=== PATIENT | female | born 1985 | race African-American/Black ===

== ENCOUNTER 2020-05-17 15:22 | Inpatient (IN) | payer MEDICAID ==
[~2020-05-17] VITALS: Ht 172.7 cm; Wt 82.6 kg
[2020-05-17 15:30] VITALS: BP 133/79
--- NOTE | 2020-05-17 15:52 | Emergency Room Report ---
History of Present Illness General Chief Complaint: Seizure Source: Patient, Medical Record, EMS, Caregiver Present Illness HPI 34-year-old female history of epilepsy presents from assisted living facility, recently discharged from [facility], patient had a tonic-clonic seizure witnessed, patient currently wears a helmet for protection, she had LOC, aggravated by the fact she did not take her seizure medications for a few days alleviated by seizure medication severity was severe lasting a few minutes patient presents for evaluation and treatment history is currently limited from the patient due to her been having a postictal state Allergies: Coded Allergies: No Known Allergies (Unverified , 05/17/20) COVID-19 Screening Contact w/high risk pt: No Experienced COVID-19 symptoms?: No COVID-19 Testing performed FLOORING INSTALLER: No Patient History Limited by: medical condition - Postictal Past Medical History: see triage record Now: No Reviewed Nursing Documentation: PMH: Agreed; PSxH: Agreed Nursing Documentation-PMH Hx Seizures: Yes Review of Systems All Other Systems: limited - Postictal Physical Exam Vital Signs Date Time Temp Pulse Resp B/P (MAP) Pulse Ox O2 Delivery O2 Flow Rate FiO2 05/17/20 15:09 98.2 112 18 124/74 (91) 98 Room Air Sp02 EP Interpretation: reviewed, normal General Appearance: well appearing, no apparent distress, alert Head: normocephalic, atraumatic Eyes: bilateral eye PERRL, bilateral eye EOMI ENT: uvula midline, moist mucus membranes Neck: supple, thyroid normal, supple/symm/no masses Respiratory: lungs clear, no respiratory distress, no retraction, no accessory muscle use Cardiovascular #1: normal peripheral pulses, regular rate, rhythm, no edema, no gallop, no murmur Gastrointestinal: non tender, soft, no guarding, no rebound Musculoskeletal: normal inspection Neurologic: alert, responsive, other - Confused Psychiatric: mood/affect normal Skin: no rash, warm/dry Medical Decision Making Diagnostic Impression: Primary Impression: Epileptic seizure, generalized Additional Impression: UTI (urinary tract infection) Qualified Codes: N39.0 - Urinary tract infection, site not specified ER Course 34-year-old female history of seizure disorder, spoke with machine adjuster leader case trim from the assisted living facility, they were unaware that she was ambulatory and that they do not have the means to care for her they will refuse any discharge they want the patient admitted. She will be admitted to the hospital for placement due to the facility unable to care for her We will provide patient with Lamictal 125 mg, and Keppra 1 g, plan for admission for placement Patient given ceftriaxone for her UTI Patient admitted to Dr. Cloud Laboratory Tests Test 05/17/20 15:30 White Blood Count 7.9 K/UL (4.8-10.8) Red Blood Count 3.88 M/UL (4.20-5.40) L Hemoglobin 11.3 G/DL (12.0-16.0) L Hematocrit 35.4 % (37.0-47.0) L Mean Corpuscular Volume 91 FL (80-99) Mean Corpuscular Hemoglobin 29.1 PG (27.0-31.0) Mean Corpuscular Hemoglobin Concent 32.0 G/DL (32.0-36.0) Red Cell Distribution Width 16.0 % (11.6-14.8) H Platelet Count 174 K/UL (150-450) Mean Platelet Volume 8.1 FL (6.5-10.1) Neutrophils (%) (Auto) 84.3 % (45.0-75.0) H Lymphocytes (%) (Auto) 8.8 % (20.0-45.0) L Monocytes (%) (Auto) 6.1 % (1.0-10.0) Eosinophils (%) (Auto) 0.0 % (0.0-3.0) Basophils (%) (Auto) 0.9 % (0.0-2.0) Urine Color Yellow Urine Appearance Slightly cloudy Urine pH 8 (4.5-8.0) Urine Specific [place] 1.015 (1.005-1.035) Urine Protein 3+ (NEGATIVE) H Urine Glucose (UA) Negative (NEGATIVE) Urine Ketones 1+ (NEGATIVE) H Urine Blood 4+ (NEGATIVE) H Urine Nitrite Negative (NEGATIVE) Urine Bilirubin Negative (NEGATIVE) Urine Urobilinogen Normal MG/DL (0.0-1.0) Urine Leukocyte Esterase 1+ (NEGATIVE) H Urine RBC 15-20 /HPF (0 - 2) H Urine WBC 2-4 /HPF (0 - 2) Urine Squamous Epithelial Cells Many /LPF (NONE/OCC) H Urine Amorphous Sediment Moderate /LPF (NONE) H Urine Bacteria Many /HPF (NONE) H Urine HCG, Qualitative Negative (NEGATIVE) Sodium Level 138 MMOL/L (136-145) Potassium Level 4.0 MMOL/L (3.5-5.1) Chloride Level 100 MMOL/L (98-107) Carbon Dioxide Level 27 MMOL/L (21-32) Anion Gap 11 mmol/L (5-15) Blood Urea Nitrogen 9 mg/dL (7-18) Creatinine 1.1 MG/DL (0.55-1.30) Estimated Glomerular Filtration Rate 57.2 mL/min (>60) Glucose Level 155 MG/DL (74-106) H Calcium Level 9.7 MG/DL (8.5-10.1) Total Bilirubin 0.1 MG/DL (0.2-1.0) L Aspartate Amino Transferase (AST) 12 U/L (15-37) L Alanine Aminotransferase (ALT) 17 U/L (12-78) Alkaline Phosphatase 63 U/L (46-116) Total Protein 8.3 G/DL (6.4-8.2) H Albumin 4.1 G/DL (3.4-5.0) Globulin 4.2 g/dL Albumin/Globulin Ratio 1.0 (1.0-2.7) Urine Opiates Screen Negative (NEGATIVE) Urine Barbiturates Screen Negative (NEGATIVE) Phencyclidine (PCP) Screen Negative (NEGATIVE) Urine Amphetamines Screen Negative (NEGATIVE) Phenobarbital Level < 1.0 ug/mL (15-40) L Urine Benzodiazepines Screen Negative (NEGATIVE) Urine Cocaine Screen Negative (NEGATIVE) Urine Marijuana (THC) Screen Negative (NEGATIVE) EKG Diagnostic Results EKG Time: 15:42 EP Interpretation: NSR, rate 100, QTc 451, no acute ST elevations, normal axis Rhythm Strip Diag. Results Rhythm Strip Time: 15:51 EP Interpretation: yes Rate: 107 Rhythm: other - Sinus tachycardia Last Vital Signs Date Time Temp Pulse Resp B/P (MAP) Pulse Ox O2 Delivery O2 Flow Rate FiO2 05/17/20 15:09 98.2 112 18 124/74 (91) 98 Room Air Disposition: ADMITTED INPATIENT Condition: Stable Malcom Orellana MD May 17, 2020 15:52
[2020-05-17 15:55] LABS: APPEARANCE,URINE SLIGHTLY CLOUDY; BILIRUBIN, URINE NEGATIVE (NEGATIVE); GLUCOSE, URINE (UA) NEGATIVE (NEGATIVE); KETONES,URINE 1+ (NEGATIVE); LEUKOCYTE ESTERASE ,URINE 1+ (NEGATIVE); NITRITE,URINE NEGATIVE (NEGATIVE); PH,URINE 8 (4.5-8.0); PROTEIN,URINE 3+ (NEGATIVE); UROBILINOGEN,URINE NORMAL MG/DL (0.0-1.0)
[2020-05-17 15:56] LABS: COLOR,URINE YELLOW
[2020-05-17 15:58] LABS: BASOPHILS % (AUTO) 0.9 % (0.0-2.0); HEMATOCRIT 35.4 % (37.0-47.0); HEMOGLOBIN 11.3 G/DL (12.0-16.0); LYMPHOCYTES % (AUTO) 8.8 % (20.0-45.0); MEAN CORPUSCULAR VOLUME 91 FL (80-99); MONOCYTES % (AUTO) 6.1 % (1.0-10.0); NEUTROPHILS % (AUTO) 84.3 % (45.0-75.0); PLATELET COUNT 174 K/UL (150-450); RED BLOOD COUNT 3.88 M/UL (4.20-5.40); WHITE BLOOD COUNT 7.9 K/UL (4.8-10.8)
[2020-05-17 16:03] LABS: ANION GAP 11 mmol/L (5-15); BLOOD UREA NITROGEN 9 mg/dL (7-18); CALCIUM 9.7 MG/DL (8.5-10.1); CARBON DIOXIDE 27 MMOL/L (21-32); CHLORIDE 100 MMOL/L (98-107); CREATININE 1.1 MG/DL (0.55-1.30); SODIUM 138 MMOL/L (136-145)
[2020-05-17 16:07] LABS: ALANINE AMINOTRANSFERASE 17 U/L (12-78); ALBUMIN 4.1 G/DL (3.4-5.0); ALKALINE PHOSPHATASE 63 U/L (46-116); ASPARTATE AMINO TRANSFERASE 12 U/L (15-37); BILIRUBIN,TOTAL 0.1 MG/DL (0.2-1.0)
[2020-05-17] MEDS ORDERED: LORazepam Inj 2mg/ml 1ml IV ONE (16:30)
[2020-05-17] MEDS ORDERED: cefTRIAXone 1 GM in NS 55 ML IVPB ONE (17:00)
[2020-05-17 17:30] VITALS: BP 127/81
[2020-05-17 19:20] VITALS: BP 152/67
[2020-05-17] MEDS ORDERED: LAMICTAL25 MG ORAL (19:28)
[2020-05-17] MEDS ORDERED: KEPPRA500 M4 ORAL (19:28)
[2020-05-17] MEDS ORDERED: DOCUSATE SODIU250 MG ORAL (19:38)
[2020-05-17] MEDS ORDERED: SERTRALINE HCL25 MG ORAL (20:16)
[2020-05-17] MEDS ORDERED: ZYPREXA10 MG ORAL (20:16)
[2020-05-17] MEDS ORDERED: FOLIC ACID1 MG ORAL (20:16)
[2020-05-17] MEDS ORDERED: FERROUS SULFAT325 MG ORAL (20:16)
[2020-05-17] MEDS ORDERED: BENZTROPINE MESY1 MG ORAL (20:16)
[2020-05-17 20:30] VITALS: BP 121/57
[2020-05-17] MEDS ORDERED: Zolpidem 5mg tab ORAL PRN (22:00)
[2020-05-17] MEDS ORDERED: Miralax 17gm pkt ORAL PRN (22:00)
[2020-05-18] VITALS: BP 100/45
[2020-05-18] MEDS ORDERED: LORazepam Inj 2mg/ml 1ml IVP PRN
[2020-05-18 04:00] VITALS: BP 106/67
[2020-05-18 08:00] VITALS: BP 160/91
[2020-05-18] MEDS: Benztropine 1mg tab ORAL SCH ×2 (08:24→18:11)
[2020-05-18] MEDS: OLANZapine 10mg tab ORAL SCH (08:24)
[2020-05-18] MEDS: Heparin 5000 units/ml inj SUBQ SCH ×2 (08:26→20:58)
[2020-05-18 11:28] LABS: BASOPHILS % (AUTO) 0.5 % (0.0-2.0); EOSINOPHILS % (AUTO) 0.1 % (0.0-3.0); HEMATOCRIT 33.5 % (37.0-47.0); HEMOGLOBIN 10.6 G/DL (12.0-16.0); LYMPHOCYTES % (AUTO) 16.3 % (20.0-45.0); MEAN CORPUSCULAR VOLUME 90 FL (80-99); NEUTROPHILS % (AUTO) 77.1 % (45.0-75.0); PLATELET COUNT 162 K/UL (150-450); RED BLOOD COUNT 3.71 M/UL (4.20-5.40); RED CELL DISTRIBUTION WIDTH 15.4 % (11.6-14.8); WHITE BLOOD COUNT 8.1 K/UL (4.8-10.8)
[2020-05-18 12:00] VITALS: BP 109/56
[2020-05-18 12:42] LABS: ALANINE AMINOTRANSFERASE 12 U/L (12-78); ALBUMIN 3.8 G/DL (3.4-5.0); ALKALINE PHOSPHATASE 60 U/L (46-116); ANION GAP 10 mmol/L (5-15); ASPARTATE AMINO TRANSFERASE 16 U/L (15-37); BILIRUBIN,TOTAL 0.3 MG/DL (0.2-1.0); BLOOD UREA NITROGEN 7 mg/dL (7-18); CALCIUM 9.1 MG/DL (8.5-10.1); CARBON DIOXIDE 27 MMOL/L (21-32); CHLORIDE 101 MMOL/L (98-107); CREATININE 0.8 MG/DL (0.55-1.30); POTASSIUM 3.7 MMOL/L (3.5-5.1); SODIUM 138 MMOL/L (136-145)
--- NOTE | 2020-05-18 12:50 | Consultation ---
History of Present Illness General Date patient seen: May 18, 2020 Chief Complaint: Seizure Present Illness HPI 34-year-old female with a history of epilepsy presents from assisted living facility, because of a tonic-clonic seizure witnessed. she was recently discharged from another hospital and her boarding care couldn't fill her prescription, for a few days. she had witnessed seizures again and [place] [facility] [place]. Allergies: Coded Allergies: No Known Allergies (Unverified , 05/17/20) Medication History Scheduled Benztropine Mesylate* (Benztropine Mesylate*), 1 MG ORAL BID, (Reported) Docusate Sodium* (Docusate Sodium*), 250 MG ORAL TWICE A DAY, (Reported) Ferrous Sulfate* (Ferrous Sulfate*), 325 MG ORAL TWICE A DAY, (Reported) Folic Acid* (Folic Acid*), 1 MG ORAL DAILY, (Reported) Lamotrigine* (Lamictal*), 25 MG ORAL DAILY, (Reported) Levetiracetam (Keppra), 500 MG ORAL EVERY 12 HOURS, (Reported) Olanzapine* (Zyprexa*), 20 MG ORAL DAILY, (Reported) Sertraline Hcl* (Sertraline Hcl*), 200 MG ORAL BEDTIME, (Reported) Patient History Healthcare decision maker Resuscitation status Advanced Directive on File Past Medical/Surgical History Past Medical/Surgical History: (1) Psychiatric diagnosis Review of Systems All Other Systems: negative except mentioned in HPI Physical Exam General Appearance: WD/WN, no apparent distress Lines, tubes and drains: central line HEENT: normocephalic, atraumatic, anicteric, mucous membranes moist Neck: non-tender, normal alignment, supple, normal inspection Respiratory/Chest: normal breath sounds Cardiovascular/Chest: normal peripheral pulses, normal rate Abdomen: normal bowel sounds, non tender, soft Extremities: normal range of motion, non-tender, normal inspection, no calf tenderness, normal capillary refill, non-pitting Skin Exam: normal pigmentation 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 Last 24 Hour Vital Signs Date Time Temp Pulse Resp B/P (MAP) Pulse Ox O2 Delivery O2 Flow Rate FiO2 05/18/20 12:00 98.0 92 20 109/56 (73) 99 05/18/20 12:00 84 05/18/20 09:34 Room Air 05/18/20 08:00 94 05/18/20 08:00 96.7 88 19 160/91 (114) 99 05/18/20 04:00 97.9 73 18 106/67 (80) 96 05/18/20 04:00 92 05/18/20 00:00 85 05/18/20 00:00 96.5 95 17 100/45 (63) 100 05/17/20 20:30 98.6 103 19 121/57 (78) 100 05/17/20 20:30 100 05/17/20 20:20 Room Air 05/17/20 20:00 98.0 104 20 137/80 99 Room Air 05/17/20 19:20 97.8 99 24 152/67 100 Room Air 05/17/20 17:30 97.8 98 18 127/81 98 Room Air 05/17/20 15:30 98.1 109 18 133/79 97 Room Air 05/17/20 15:30 109 18 Room Air 05/17/20 15:09 98.2 112 18 124/74 (91) 98 Room Air Intake and Output 05/17/20 05/18/20 19:00 07:00 Intake Total 1055 ml 500 ml Balance 1055 ml 500 ml Intake Oral 500 ml IV Total 1055 ml # Voids 1 4 Laboratory Tests Test 05/17/20 15:30 05/18/20 11:10 White Blood Count 7.9 K/UL (4.8-10.8) 8.1 K/UL (4.8-10.8) Red Blood Count 3.88 M/UL (4.20-5.40) L 3.71 M/UL (4.20-5.40) L Hemoglobin 11.3 G/DL (12.0-16.0) L 10.6 G/DL (12.0-16.0) L Hematocrit 35.4 % (37.0-47.0) L 33.5 % (37.0-47.0) L Mean Corpuscular Volume 91 FL (80-99) 90 FL (80-99) Mean Corpuscular Hemoglobin 29.1 PG (27.0-31.0) 28.5 PG (27.0-31.0) Mean Corpuscular Hemoglobin Concent 32.0 G/DL (32.0-36.0) 31.6 G/DL (32.0-36.0) L Red Cell Distribution Width 16.0 % (11.6-14.8) H 15.4 % (11.6-14.8) H Platelet Count 174 K/UL (150-450) 162 K/UL (150-450) Mean Platelet Volume 8.1 FL (6.5-10.1) 7.2 FL (6.5-10.1) Neutrophils (%) (Auto) 84.3 % (45.0-75.0) H 77.1 % (45.0-75.0) H Lymphocytes (%) (Auto) 8.8 % (20.0-45.0) L 16.3 % (20.0-45.0) L Monocytes (%) (Auto) 6.1 % (1.0-10.0) 6.0 % (1.0-10.0) Eosinophils (%) (Auto) 0.0 % (0.0-3.0) 0.1 % (0.0-3.0) Basophils (%) (Auto) 0.9 % (0.0-2.0) 0.5 % (0.0-2.0) Urine Color Yellow Urine Appearance Slightly cloudy Urine pH 8 (4.5-8.0) Urine Specific [place] 1.015 (1.005-1.035) Urine Protein 3+ (NEGATIVE) H Urine Glucose (UA) Negative (NEGATIVE) Urine Ketones 1+ (NEGATIVE) H Urine Blood 4+ (NEGATIVE) H Urine Nitrite Negative (NEGATIVE) Urine Bilirubin Negative (NEGATIVE) Urine Urobilinogen Normal MG/DL (0.0-1.0) Urine Leukocyte Esterase 1+ (NEGATIVE) H Urine RBC 15-20 /HPF (0 - 2) H Urine WBC 2-4 /HPF (0 - 2) Urine Squamous Epithelial Cells Many /LPF (NONE/OCC) H Urine Amorphous Sediment Moderate /LPF (NONE) H Urine Bacteria Many /HPF (NONE) H Urine HCG, Qualitative Negative (NEGATIVE) Sodium Level 138 MMOL/L (136-145) Pending Potassium Level 4.0 MMOL/L (3.5-5.1) Pending Chloride Level 100 MMOL/L (98-107) Pending Carbon Dioxide Level 27 MMOL/L (21-32) Pending Anion Gap 11 mmol/L (5-15) Blood Urea Nitrogen 9 mg/dL (7-18) Pending Creatinine 1.1 MG/DL (0.55-1.30) Pending Estimat Glomerular Filtration Rate 57.2 mL/min (>60) Pending Glucose Level 155 MG/DL (74-106) H Pending Calcium Level 9.7 MG/DL (8.5-10.1) Pending Total Bilirubin 0.1 MG/DL (0.2-1.0) L Pending Aspartate Amino Transf (AST/SGOT) 12 U/L (15-37) L Pending Alanine Aminotransferase (ALT/SGPT) 17 U/L (12-78) Pending Alkaline Phosphatase 63 U/L (46-116) Pending Total Protein 8.3 G/DL (6.4-8.2) H Pending Albumin 4.1 G/DL (3.4-5.0) Pending Globulin 4.2 g/dL Pending Albumin/Globulin Ratio 1.0 (1.0-2.7) Urine Opiates Screen Negative (NEGATIVE) Urine Barbiturates Screen Negative (NEGATIVE) Phencyclidine (PCP) Screen Negative (NEGATIVE) Urine Amphetamines Screen Negative (NEGATIVE) Phenobarbital Level < 1.0 ug/mL (15-40) L Urine Benzodiazepines Screen Negative (NEGATIVE) Urine Cocaine Screen Negative (NEGATIVE) Urine Marijuana (THC) Screen Negative (NEGATIVE) Microbiology Date/Time Source Procedure Growth Status 05/17/20 15:30 Urine,Clean Catch Urine Culture - Preliminary NO GROWTH Resulted Height (Feet): 5 Height (Inches): 8.00 Weight (Pounds): 182 Medications Current Medications Medications (Trade) Dose Ordered Sig/Elizabeth Route PRN Reason Start Time Stop Time Status Last Admin Dose Admin Acetaminophen (Tylenol) 650 mg Q4H PRN ORAL fever 05/17/20 22:00 06/16/20 21:59 Benztropine Mesylate (Cogentin) 1 mg BID ORAL 05/18/20 09:00 06/17/20 08:59 05/18/20 08:24 Ceftriaxone Sodium 1 gm/ Dextrose 55 ml @ 110 mls/hr Q24H IVPB 05/18/20 17:00 05/25/20 16:59 Dextrose (Dextrose 50%) 25 ml Q30M PRN IV Hypoglycemia 05/17/20 22:00 08/15/20 21:59 Dextrose (Dextrose 50%) 50 ml Q30M PRN IV Hypoglycemia 05/17/20 22:00 08/15/20 21:59 Heparin Sodium (Porcine) (Heparin 5000 units/ml) 5,000 units EVERY 12 HOURS SUBQ 05/18/20 09:00 07/02/20 08:59 05/18/20 08:26 Lamotrigine (LaMICtal) 25 mg DAILY ORAL 05/18/20 09:00 07/02/20 08:59 05/18/20 08:24 Levetiracetam (Keppra) 1,000 mg EVERY 12 HOURS ORAL 05/18/20 21:00 07/02/20 08:59 UNV Lorazepam (Ativan 2mg/ml 1ml) 1 mg Q4H PRN IVP For Seizures 05/18/20 00:00 05/25/20 00:00 Olanzapine (ZyPREXA) 20 mg DAILY ORAL 05/18/20 09:00 07/02/20 08:59 05/18/20 08:24 Ondansetron HCl (Zofran) 4 mg Q6H PRN IVP Nausea & Vomiting 05/17/20 22:00 06/16/20 21:59 Polyethylene Glycol (Miralax) 17 gm HSPRN PRN ORAL Constipation 05/17/20 22:00 06/16/20 21:59 Sertraline HCl (Zoloft) 200 mg BEDTIME ORAL 05/18/20 21:00 06/17/20 20:59 Zolpidem Tartrate (Ambien) 5 mg HSPRN PRN ORAL Insomnia 05/17/20 22:00 05/24/20 21:59 Assessment/Plan Problem List: (1) Epileptic seizure, generalized ICD Codes: G40.309 - Generalized idiopathic epilepsy and epileptic syndromes, not intractable, without status epilepticus SNOMED: 41683376 (2) Poor compliance ICD Codes: Z91.19 - Patient's noncompliance with other medical treatment and regimen SNOMED: 5880330 (3) Psychiatric diagnosis ICD Codes: F99 - Mental disorder, not otherwise specified SNOMED: 57408683 Assessment/Plan: seizure precaution increase the dose of Depakote neuro evaluation symptomatic treatment Esther Rincon MD May 18, 2020 12:50
[2020-05-18 16:00] VITALS: BP 105/65
[2020-05-18] MEDS: cefTRIAXone 1 GM in D5W 55 ML IVPB SCH (16:39)
[2020-05-18 20:00] VITALS: BP 106/66
--- NOTE | 2020-05-18 20:01 | History & Physical ---
History and Physical History & Physicial Héctor Cloud MD May 18, 2020 20:01
[2020-05-18] MEDS: Sertraline 100mg tab ORAL SCH (20:57)
--- NOTE | 2020-05-18 21:45 | History and Physical Report ---
DATE OF ADMISSION: 05/17/2020 CHIEF COMPLAINT: Uncontrolled seizure. HISTORY OF PRESENT ILLNESS: The patient is a 34-year-old female with past medical history significant epilepsy as well as psychiatric disorder, who presented to the hospital from assisted living facility after she had a tonic-clonic seizure and weakness. The patient was recently discharged from the outside hospital to the [facility]. We are going to find her prescription. The patient did not have any medication for several days and had a witnessed seizure activity and then subsequently the patient was transferred to the hospital. Shortly after initial evaluation in the emergency room, the patient was admitted to the hospital for uncontrolled seizure most likely secondary to the lack of medicine. PAST MEDICAL HISTORY/PAST SURGICAL HISTORY: As above history of seizure disorder, psychiatric disorder, and morbid obesity. MEDICATIONS AT HOME: Significant for benztropine, docusate, iron sulfate, folic acid, Lamictal, Keppra, Zyprexa, and . ALLERGIES: No known drug allergies. SOCIAL HISTORY: No smoking, alcohol, or drugs at this time, lives in [facility]. FAMILY HISTORY: Noncontributory. REVIEW OF SYSTEMS: Mostly as above. No fever or chills. No nausea or vomiting. No double vision. No fall or head trauma was reported. PHYSICAL EXAMINATION: VITAL SIGNS: On admission to temperature 98.2, pulse of 112, respirations 18, and blood pressure 124/74. GENERAL: The patient is awake, responsive, in no acute distress, however, very somnolent and less responsive. HEENT: Head and neck examination, pupils are equal and reactive to light. Extraocular movements intact. Neck was supple. No JVD. LUNGS: . No wheezing or rales. Decreased air entry in the bases. HEART: S1, S2. Regular rhythm. Distant heart sounds. No murmur or gallops. ABDOMEN: Soft, nondistended, nontender. Morbidly obese. EXTREMITIES: No cyanosis, clubbing, or edema NEUROLOGIC: Very limited secondary to the patient's status. She is very somnolent; however she is moving extremities spontaneously. NEUROLOGIC: Cranial nerves II through XII grossly normal but was not appreciated probably because of the patient's status. LABORATORY AND DIAGNOSTIC DATA: Laboratory on admission, WBC of 7.9, hemoglobin 11, hematocrit 35, platelet is 174. Sodium 138, potassium 4.0, chloride 100, bicarbonate 27, BUN 9, creatinine 1.1, GFR is 57, glucose is 155. ALT of 12, AST of 17, alkaline phosphatase was 63. Albumin is 4.1. Urine drug screen is negative. Phenobarbital level is less than 0.1. Urinalysis, +3 protein, +1 ketone, +4 blood, +1 leukocyte esterase, 15 to 20 rbc's, many squamous epithelial cell. ASSESSMENT: 1. Uncontrolled seizure, most likely secondary to the lack of medicine and noncompliance with medication. 2. Epilepsy. 3. Poor compliance with medication. 4. Psychiatric disorder. 5. Morbid obesity. PLAN: Admit the patient to monitored unit. We will follow up laboratory. Discussed with Dr. Rincon, Pulmonary Critical Care. Ativan as needed for seizure. We will resume home medication. Followup with PT and OT for mobility. If the patient's status improves, consider discharge back to the assisted living. Héctor Cloud M.D. DR: Ky JOB#: [id number] CC:
[2020-05-19] VITALS: BP 98/59
[2020-05-19 04:00] VITALS: BP 109/56
[2020-05-19 07:09] LABS: BASOPHILS % (AUTO) 1.2 % (0.0-2.0); EOSINOPHILS % (AUTO) 1.5 % (0.0-3.0); HEMATOCRIT 36.6 % (37.0-47.0); HEMOGLOBIN 11.3 G/DL (12.0-16.0); LYMPHOCYTES % (AUTO) 42.3 % (20.0-45.0); MEAN CORPUSCULAR VOLUME 91 FL (80-99); PLATELET COUNT 169 K/UL (150-450); RED BLOOD COUNT 4.01 M/UL (4.20-5.40); RED CELL DISTRIBUTION WIDTH 15.5 % (11.6-14.8); WHITE BLOOD COUNT 4.3 K/UL (4.8-10.8)
[2020-05-19 07:19] LABS: ALANINE AMINOTRANSFERASE 15 U/L (12-78); ALBUMIN 3.7 G/DL (3.4-5.0); ALBUMIN/GLOBULIN RATIO 0.9 (1.0-2.7); ALKALINE PHOSPHATASE 60 U/L (46-116); ANION GAP 6 mmol/L (5-15); ASPARTATE AMINO TRANSFERASE 14 U/L (15-37); BILIRUBIN,TOTAL 0.3 MG/DL (0.2-1.0); BLOOD UREA NITROGEN 10 mg/dL (7-18); CALCIUM 9.2 MG/DL (8.5-10.1); CARBON DIOXIDE 31 MMOL/L (21-32); CHLORIDE 103 MMOL/L (98-107); CREATININE 0.9 MG/DL (0.55-1.30); PHOSPHORUS 5.2 MG/DL (2.5-4.9); POTASSIUM 3.7 MMOL/L (3.5-5.1); SODIUM 140 MMOL/L (136-145)
[2020-05-19 08:00] VITALS: BP 109/49
[2020-05-19] MEDS: OLANZapine 10mg tab ORAL SCH (08:51)
[2020-05-19] MEDS: Benztropine 1mg tab ORAL SCH ×2 (08:51→17:38)
[2020-05-19] MEDS: Heparin 5000 units/ml inj SUBQ SCH ×2 (08:51→20:18)
[2020-05-19 12:00] VITALS: BP 102/49
--- NOTE | 2020-05-19 14:08 | Internal Med Progress Note ---
Subjective Date of Service: May 19, 2020 Physician Name VargasRico Attending Physician Héctor Cloud MD Current Medications Medications (Trade) Dose Ordered Sig/Elizabeth Route PRN Reason Start Time Stop Time Status Last Admin Dose Admin Acetaminophen (Tylenol) 650 mg Q4H PRN ORAL fever 05/17/20 22:00 06/16/20 21:59 Benztropine Mesylate (Cogentin) 1 mg BID ORAL 05/18/20 09:00 06/17/20 08:59 05/19/20 08:51 Ceftriaxone Sodium 1 gm/ Dextrose 55 ml @ 110 mls/hr Q24H IVPB 05/18/20 17:00 05/25/20 16:59 05/18/20 16:39 Dextrose (Dextrose 50%) 25 ml Q30M PRN IV Hypoglycemia 05/17/20 22:00 08/15/20 21:59 Dextrose (Dextrose 50%) 50 ml Q30M PRN IV Hypoglycemia 05/17/20 22:00 08/15/20 21:59 Heparin Sodium (Porcine) (Heparin 5000 units/ml) 5,000 units EVERY 12 HOURS SUBQ 05/18/20 09:00 07/02/20 08:59 05/18/20 08:26 Lamotrigine (LaMICtal) 25 mg DAILY ORAL 05/18/20 09:00 07/02/20 08:59 05/19/20 08:51 Levetiracetam (Keppra) 1,000 mg EVERY 12 HOURS ORAL 05/18/20 21:00 07/02/20 08:59 05/19/20 08:51 Lorazepam (Ativan 2mg/ml 1ml) 1 mg Q4H PRN IVP For Seizures 05/18/20 00:00 05/25/20 00:00 Olanzapine (ZyPREXA) 20 mg DAILY ORAL 05/18/20 09:00 07/02/20 08:59 05/19/20 08:51 Ondansetron HCl (Zofran) 4 mg Q6H PRN IVP Nausea & Vomiting 05/17/20 22:00 06/16/20 21:59 Polyethylene Glycol (Miralax) 17 gm HSPRN PRN ORAL Constipation 05/17/20 22:00 06/16/20 21:59 05/18/20 21:23 Sertraline HCl (Zoloft) 200 mg BEDTIME ORAL 05/18/20 21:00 06/17/20 20:59 05/18/20 20:57 Zolpidem Tartrate (Ambien) 5 mg HSPRN PRN ORAL Insomnia 05/17/20 22:00 05/24/20 21:59 Allergies: Coded Allergies: No Known Allergies (Unverified , 05/17/20) ROS Limited/Unobtainable: Yes Subjective 34 YO F with history of seizure disorder admitted with breakthrough seizure. Cover for Int Med-Dr Cloud. Objective Last Vital Signs Date Time Temp Pulse Resp B/P (MAP) Pulse Ox O2 Delivery O2 Flow Rate FiO2 05/19/20 12:00 97.7 75 18 102/49 (66) 98 05/19/20 09:00 Room Air Laboratory Tests Test 05/19/20 06:05 White Blood Count 4.3 K/UL (4.8-10.8) L Red Blood Count 4.01 M/UL (4.20-5.40) L Hemoglobin 11.3 G/DL (12.0-16.0) L Hematocrit 36.6 % (37.0-47.0) L Mean Corpuscular Volume 91 FL (80-99) Mean Corpuscular Hemoglobin 28.2 PG (27.0-31.0) Mean Corpuscular Hemoglobin Concent 30.9 G/DL (32.0-36.0) L Red Cell Distribution Width 15.5 % (11.6-14.8) H Platelet Count 169 K/UL (150-450) Mean Platelet Volume 8.2 FL (6.5-10.1) Neutrophils (%) (Auto) 46.0 % (45.0-75.0) Lymphocytes (%) (Auto) 42.3 % (20.0-45.0) Monocytes (%) (Auto) 9.0 % (1.0-10.0) Eosinophils (%) (Auto) 1.5 % (0.0-3.0) Basophils (%) (Auto) 1.2 % (0.0-2.0) Erythrocyte Sedimentation Rate 32 MM/HR (0-20) H Sodium Level 140 MMOL/L (136-145) Potassium Level 3.7 MMOL/L (3.5-5.1) Chloride Level 103 MMOL/L (98-107) Carbon Dioxide Level 31 MMOL/L (21-32) Anion Gap 6 mmol/L (5-15) Blood Urea Nitrogen 10 mg/dL (7-18) Creatinine 0.9 MG/DL (0.55-1.30) Estimat Glomerular Filtration Rate > 60 mL/min (>60) Glucose Level 92 MG/DL (74-106) Calcium Level 9.2 MG/DL (8.5-10.1) Phosphorus Level 5.2 MG/DL (2.5-4.9) H Magnesium Level 2.2 MG/DL (1.8-2.4) Total Bilirubin 0.3 MG/DL (0.2-1.0) Aspartate Amino Transf (AST/SGOT) 14 U/L (15-37) L Alanine Aminotransferase (ALT/SGPT) 15 U/L (12-78) Alkaline Phosphatase 60 U/L (46-116) C-Reactive Protein, Quantitative 4.5 mg/dL (0.00-0.90) H Total Protein 7.9 G/DL (6.4-8.2) Albumin 3.7 G/DL (3.4-5.0) Globulin 4.2 g/dL Albumin/Globulin Ratio 0.9 (1.0-2.7) L Microbiology Date/Time Source Procedure Growth Status 05/17/20 15:30 Urine,Clean Catch Urine Culture - Final Diphtheroids Complete Intake and Output 05/18/20 05/19/20 19:00 07:00 Intake Total 840 ml Balance 840 ml Intake Oral 840 ml # Voids 4 2 # Bowel Movements 2 1 Objective PHYSICAL EXAMINATION: GENERAL: The patient is awake, responsive, in no acute distress, however, very somnolent and less responsive. HEENT: Head and neck examination, pupils are equal and reactive to light. Extraocular movements intact. Neck was supple. No JVD. LUNGS: Clear to auscultation bilaterally. No wheezing or rales. Decreased air entry in the bases. HEART: S1, S2. Regular rhythm. Distant heart sounds. No murmur or gallops. ABDOMEN: Soft, nondistended, nontender. Morbidly obese. EXTREMITIES: No cyanosis, clubbing, or edema NEUROLOGIC: Very limited secondary to the patient's status. She is very somnolent; however she is moving extremities spontaneously. NEUROLOGIC: Cranial nerves II through XII grossly normal but was not appreciated probably because of the patient's status. Assessment/Plan Assessment/Plan ASSESSMENT: 1. Uncontrolled seizure 2. noncompliance with medication. 3. Epilepsy. 4. Poor compliance with medication. 5. Psychiatric disorder. 6. Morbid obesity. PLAN: 1. Admit the patient to monitored unit. 2. Dr. Rincon=Pulmonary Critical Care. 3. Ativan as needed for breakthrough seizure. 4. PT and OT for mobility. 5. Discharge planning: discharge back to the assisted living. Rico Vargas MD May 19, 2020 14:08
--- NOTE | 2020-05-19 15:16 | Pulmonology Progress Note ---
Subjective ROS Limited/Unobtainable: Yes Allergies: Coded Allergies: No Known Allergies (Unverified , 05/17/20) Objective Last 24 Hour Vital Signs Date Time Temp Pulse Resp B/P (MAP) Pulse Ox O2 Delivery O2 Flow Rate FiO2 05/19/20 12:00 97.7 75 18 102/49 (66) 98 05/19/20 12:00 73 05/19/20 09:00 Room Air 05/19/20 08:00 73 05/19/20 08:00 97.7 66 18 109/49 (69) 97 05/19/20 04:00 97.5 61 18 109/56 (73) 97 05/19/20 04:00 65 05/19/20 00:00 68 05/19/20 00:00 97.7 84 20 98/59 (72) 97 05/18/20 21:00 Room Air 05/18/20 20:00 98.1 89 20 106/66 (79) 99 05/18/20 20:00 82 05/18/20 16:00 69 05/18/20 16:00 97.9 92 20 105/65 (78) 93 Intake and Output 05/18/20 05/19/20 19:00 07:00 Intake Total 840 ml Balance 840 ml Intake Oral 840 ml # Voids 4 2 # Bowel Movements 2 1 General Appearance: WD/WN HEENT: normocephalic, atraumatic Respiratory: chest wall non-tender, lungs clear Breasts: no masses Cardiovascular: normal peripheral pulses, regularly irregular Abdomen: normal bowel sounds, no organomegaly Genitourinary: normal external genitalia Extremities: no cyanosis Skin: no rash Microbiology Date/Time Source Procedure Growth Status 05/17/20 15:30 Urine,Clean Catch Urine Culture - Final Diphtheroids Complete Laboratory Tests 05/19/20 06:05: White Blood Count 4.3L, Red Blood Count 4.01L, Hemoglobin 11.3L, Hematocrit 36.6L, Mean Corpuscular Volume 91, Mean Corpuscular Hemoglobin 28.2, Mean Corpuscular Hemoglobin Concent 30.9L, Red Cell Distribution Width 15.5H, Platelet Count 169, Mean Platelet Volume 8.2, Neutrophils (%) (Auto) 46.0, Lymphocytes (%) (Auto) 42.3, Monocytes (%) (Auto) 9.0, Eosinophils (%) (Auto) 1.5, Basophils (%) (Auto) 1.2, Erythrocyte Sedimentation Rate 32H, Sodium Level 140, Potassium Level 3.7, Chloride Level 103, Carbon Dioxide Level 31, Anion Gap 6, Blood Urea Nitrogen 10, Creatinine 0.9, Estimat Glomerular Filtration Rate > 60, Glucose Level 92, Calcium Level 9.2, Phosphorus Level 5.2H, Magnesium Level 2.2, Total Bilirubin 0.3, Aspartate Amino Transf (AST/SGOT) 14L , Alanine Aminotransferase (ALT/SGPT) 15, Alkaline Phosphatase 60, C-Reactive Protein, Quantitative 4.5H, Total Protein 7.9, Albumin 3.7, Globulin 4.2, Albumin/Globulin Ratio 0.9L Current Medications Medications (Trade) Dose Ordered Sig/Elizabeth Route PRN Reason Start Time Stop Time Status Last Admin Dose Admin Acetaminophen (Tylenol) 650 mg Q4H PRN ORAL fever 05/17/20 22:00 06/16/20 21:59 Benztropine Mesylate (Cogentin) 1 mg BID ORAL 05/18/20 09:00 06/17/20 08:59 05/19/20 08:51 Ceftriaxone Sodium 1 gm/ Dextrose 55 ml @ 110 mls/hr Q24H IVPB 05/18/20 17:00 05/25/20 16:59 05/18/20 16:39 Dextrose (Dextrose 50%) 25 ml Q30M PRN IV Hypoglycemia 05/17/20 22:00 08/15/20 21:59 Dextrose (Dextrose 50%) 50 ml Q30M PRN IV Hypoglycemia 05/17/20 22:00 08/15/20 21:59 Heparin Sodium (Porcine) (Heparin 5000 units/ml) 5,000 units EVERY 12 HOURS SUBQ 05/18/20 09:00 07/02/20 08:59 05/18/20 08:26 Lamotrigine (LaMICtal) 25 mg DAILY ORAL 05/18/20 09:00 07/02/20 08:59 05/19/20 08:51 Levetiracetam (Keppra) 1,000 mg EVERY 12 HOURS ORAL 05/18/20 21:00 07/02/20 08:59 05/19/20 08:51 Lorazepam (Ativan 2mg/ml 1ml) 1 mg Q4H PRN IVP For Seizures 05/18/20 00:00 05/25/20 00:00 Olanzapine (ZyPREXA) 20 mg DAILY ORAL 05/18/20 09:00 07/02/20 08:59 05/19/20 08:51 Ondansetron HCl (Zofran) 4 mg Q6H PRN IVP Nausea & Vomiting 05/17/20 22:00 06/16/20 21:59 Polyethylene Glycol (Miralax) 17 gm HSPRN PRN ORAL Constipation 05/17/20 22:00 06/16/20 21:59 05/18/20 21:23 Sertraline HCl (Zoloft) 200 mg BEDTIME ORAL 05/18/20 21:00 06/17/20 20:59 05/18/20 20:57 Zolpidem Tartrate (Ambien) 5 mg HSPRN PRN ORAL Insomnia 05/17/20 22:00 05/24/20 21:59 Assessment/Plan Problems: (1) Epileptic seizure, generalized (2) Poor compliance (3) Psychiatric diagnosis Assessment/Plan seizure precaution increase the dose of Depakote neuro evaluation symptomatic treatment Esther Rincon MD May 19, 2020 15:16
[2020-05-19 16:00] VITALS: BP 114/66
[2020-05-19] MEDS: cefTRIAXone 1 GM in D5W 55 ML IVPB SCH (16:02)
[2020-05-19 20:00] VITALS: BP 104/65
[2020-05-19] MEDS: Sertraline 100mg tab ORAL SCH (20:15)
[2020-05-20] VITALS: BP 114/66
[2020-05-20 04:00] VITALS: BP 100/48
[2020-05-20 04:27] LABS: BASOPHILS % (AUTO) 1.2 % (0.0-2.0); EOSINOPHILS % (AUTO) 2.4 % (0.0-3.0); HEMATOCRIT 34.8 % (37.0-47.0); LYMPHOCYTES % (AUTO) 45.2 % (20.0-45.0); MEAN CORPUSCULAR VOLUME 91 FL (80-99); MONOCYTES % (AUTO) 10.8 % (1.0-10.0); NEUTROPHILS % (AUTO) 40.3 % (45.0-75.0); PLATELET COUNT 156 K/UL (150-450); RED BLOOD COUNT 3.85 M/UL (4.20-5.40); WHITE BLOOD COUNT 4.2 K/UL (4.8-10.8)
[2020-05-20 04:37] LABS: ANION GAP 5 mmol/L (5-15); BLOOD UREA NITROGEN 15 mg/dL (7-18); CALCIUM 8.9 MG/DL (8.5-10.1); CARBON DIOXIDE 31 MMOL/L (21-32); CHLORIDE 104 MMOL/L (98-107); CREATININE 0.8 MG/DL (0.55-1.30); POTASSIUM 3.6 MMOL/L (3.5-5.1); SODIUM 140 MMOL/L (136-145)
[2020-05-20 08:00] VITALS: BP 98/64
[2020-05-20] MEDS: Benztropine 1mg tab ORAL SCH ×2 (08:42→17:56)
[2020-05-20] MEDS: OLANZapine 10mg tab ORAL SCH (08:42)
[2020-05-20] MEDS: Heparin 5000 units/ml inj SUBQ SCH ×2 (08:43→20:53)
[2020-05-20 09:13] LABS: APPEARANCE,URINE CLEAR; BILIRUBIN, URINE NEGATIVE (NEGATIVE); COLOR,URINE PALE YELLOW; GLUCOSE, URINE (UA) NEGATIVE (NEGATIVE); KETONES,URINE NEGATIVE (NEGATIVE); LEUKOCYTE ESTERASE ,URINE NEGATIVE (NEGATIVE); NITRITE,URINE NEGATIVE (NEGATIVE); PH,URINE 7 (4.5-8.0); PROTEIN,URINE NEGATIVE (NEGATIVE); UROBILINOGEN,URINE NORMAL MG/DL (0.0-1.0)
[2020-05-20 12:00] VITALS: BP 108/59
--- NOTE | 2020-05-20 15:26 | Pulmonology Progress Note ---
Subjective ROS Limited/Unobtainable: Yes Interval Events: no more seizures Allergies: Coded Allergies: No Known Allergies (Unverified , 05/17/20) Objective Last 24 Hour Vital Signs Date Time Temp Pulse Resp B/P (MAP) Pulse Ox O2 Delivery O2 Flow Rate FiO2 05/20/20 12:00 66 05/20/20 12:00 97.9 73 20 108/59 (75) 98 05/20/20 09:00 Room Air 05/20/20 08:20 59 05/20/20 08:00 98.1 75 20 98/64 (75) 99 05/20/20 04:00 97.5 84 16 100/48 (65) 97 05/20/20 04:00 61 05/20/20 00:00 98.8 68 18 114/66 (82) 99 05/20/20 00:00 68 05/19/20 21:00 Room Air 05/19/20 20:00 68 05/19/20 20:00 98.1 68 18 104/65 (78) 96 05/19/20 16:00 78 05/19/20 16:00 98.8 80 18 114/66 (82) 99 Intake and Output 05/19/20 05/20/20 19:00 07:00 Intake Total 1180 ml 100 ml Balance 1180 ml 100 ml Intake Oral 1180 ml 100 ml # Voids 3 3 General Appearance: WD/WN HEENT: normocephalic, atraumatic Respiratory: chest wall non-tender, lungs clear Breasts: no masses Cardiovascular: normal peripheral pulses, regularly irregular Abdomen: normal bowel sounds, no organomegaly Genitourinary: normal external genitalia Extremities: no cyanosis Skin: no rash Microbiology Date/Time Source Procedure Growth Status 05/17/20 15:30 Urine,Clean Catch Urine Culture - Final Diphtheroids Complete 05/20/20 01:50 Rectum Received Laboratory Tests 05/20/20 04:00: White Blood Count 4.2L, Red Blood Count 3.85L, Hemoglobin 11.0L, Hematocrit 34.8L, Mean Corpuscular Volume 91, Mean Corpuscular Hemoglobin 28.5, Mean Corpuscular Hemoglobin Concent 31.5L, Red Cell Distribution Width 15.0H, Platelet Count 156, Mean Platelet Volume 7.7, Neutrophils (%) (Auto) 40.3L, Lymphocytes (%) (Auto) 45.2H, Monocytes (%) (Auto) 10.8H, Eosinophils (%) (Auto ) 2.4, Basophils (%) (Auto) 1.2, Sodium Level 140, Potassium Level 3.6, Chloride Level 104, Carbon Dioxide Level 31, Anion Gap 5, Blood Urea Nitrogen 15 , Creatinine 0.8, Estimat Glomerular Filtration Rate > 60, Glucose Level 107H, Calcium Level 8.9 05/20/20 08:00: Urine Color Pale yellow, Urine Appearance Clear, Urine pH 7, Urine Specific [place] 1.015, Urine Protein Negative, Urine Glucose (UA) Negative, Urine Ketones Negative, Urine Blood Negative, Urine Nitrite Negative, Urine Bilirubin Negative, Urine Urobilinogen Normal, Urine Leukocyte Esterase Negative Current Medications Medications (Trade) Dose Ordered Sig/Elizabeth Route PRN Reason Start Time Stop Time Status Last Admin Dose Admin Acetaminophen (Tylenol) 650 mg Q4H PRN ORAL fever 05/17/20 22:00 06/16/20 21:59 Benztropine Mesylate (Cogentin) 1 mg BID ORAL 05/18/20 09:00 06/17/20 08:59 05/20/20 08:42 Dextrose (Dextrose 50%) 25 ml Q30M PRN IV Hypoglycemia 05/17/20 22:00 08/15/20 21:59 Dextrose (Dextrose 50%) 50 ml Q30M PRN IV Hypoglycemia 05/17/20 22:00 08/15/20 21:59 Heparin Sodium (Porcine) (Heparin 5000 units/ml) 5,000 units EVERY 12 HOURS SUBQ 05/18/20 09:00 07/02/20 08:59 05/20/20 08:43 Lamotrigine (LaMICtal) 25 mg DAILY ORAL 05/18/20 09:00 07/02/20 08:59 05/20/20 08:42 Levetiracetam (Keppra) 1,000 mg EVERY 12 HOURS ORAL 05/18/20 21:00 07/02/20 08:59 05/20/20 08:42 Lorazepam (Ativan 2mg/ml 1ml) 1 mg Q4H PRN IVP For Seizures 05/18/20 00:00 05/25/20 00:00 Olanzapine (ZyPREXA) 20 mg DAILY ORAL 05/18/20 09:00 07/02/20 08:59 05/20/20 08:42 Ondansetron HCl (Zofran) 4 mg Q6H PRN IVP Nausea & Vomiting 05/17/20 22:00 06/16/20 21:59 Polyethylene Glycol (Miralax) 17 gm HSPRN PRN ORAL Constipation 05/17/20 22:00 06/16/20 21:59 05/18/20 21:23 Sertraline HCl (Zoloft) 200 mg BEDTIME ORAL 05/18/20 21:00 06/17/20 20:59 05/19/20 20:15 Zolpidem Tartrate (Ambien) 5 mg HSPRN PRN ORAL Insomnia 05/17/20 22:00 05/24/20 21:59 Assessment/Plan Problems: (1) Epileptic seizure, generalized (2) Poor compliance (3) Psychiatric diagnosis Assessment/Plan doing better no more seizures seizure precaution increase the dose of Depakote neuro evaluation symptomatic treatment Esther Rincon MD May 20, 2020 15:26
[2020-05-20 16:00] VITALS: BP 108/63
--- NOTE | 2020-05-20 16:04 | Internal Med Progress Note ---
Subjective Date of Service: May 20, 2020 Physician Name Rico Vargas Attending Physician Héctor Cloud MD Current Medications Medications (Trade) Dose Ordered Sig/Elizabeth Route PRN Reason Start Time Stop Time Status Last Admin Dose Admin Acetaminophen (Tylenol) 650 mg Q4H PRN ORAL fever 05/17/20 22:00 06/16/20 21:59 Benztropine Mesylate (Cogentin) 1 mg BID ORAL 05/18/20 09:00 06/17/20 08:59 05/20/20 08:42 Dextrose (Dextrose 50%) 25 ml Q30M PRN IV Hypoglycemia 05/17/20 22:00 08/15/20 21:59 Dextrose (Dextrose 50%) 50 ml Q30M PRN IV Hypoglycemia 05/17/20 22:00 08/15/20 21:59 Heparin Sodium (Porcine) (Heparin 5000 units/ml) 5,000 units EVERY 12 HOURS SUBQ 05/18/20 09:00 07/02/20 08:59 05/20/20 08:43 Lamotrigine (LaMICtal) 25 mg DAILY ORAL 05/18/20 09:00 07/02/20 08:59 05/20/20 08:42 Levetiracetam (Keppra) 1,000 mg EVERY 12 HOURS ORAL 05/18/20 21:00 07/02/20 08:59 05/20/20 08:42 Lorazepam (Ativan 2mg/ml 1ml) 1 mg Q4H PRN IVP For Seizures 05/18/20 00:00 05/25/20 00:00 Olanzapine (ZyPREXA) 20 mg DAILY ORAL 05/18/20 09:00 07/02/20 08:59 05/20/20 08:42 Ondansetron HCl (Zofran) 4 mg Q6H PRN IVP Nausea & Vomiting 05/17/20 22:00 06/16/20 21:59 Polyethylene Glycol (Miralax) 17 gm HSPRN PRN ORAL Constipation 05/17/20 22:00 06/16/20 21:59 05/18/20 21:23 Sertraline HCl (Zoloft) 200 mg BEDTIME ORAL 05/18/20 21:00 06/17/20 20:59 05/19/20 20:15 Zolpidem Tartrate (Ambien) 5 mg HSPRN PRN ORAL Insomnia 05/17/20 22:00 05/24/20 21:59 Allergies: Coded Allergies: No Known Allergies (Unverified , 05/17/20) ROS Limited/Unobtainable: No Constitutional: Reports: no symptoms HEENT: Reports: no symptoms Cardiovascular: Reports: no symptoms Respiratory: Reports: no symptoms Gastrointestinal/Abdominal: Reports: no symptoms Genitourinary: Reports: no symptoms Neurologic/Psychiatric: Reports: no symptoms Subjective 34 YO F with history of seizure disorder admitted with breakthrough seizure. Cover for Int Med-Dr Cloud. Objective Last Vital Signs Date Time Temp Pulse Resp B/P (MAP) Pulse Ox O2 Delivery O2 Flow Rate FiO2 05/20/20 12:00 66 05/20/20 12:00 97.9 20 108/59 (75) 98 05/20/20 09:00 Room Air Laboratory Tests Test 05/20/20 04:00 05/20/20 08:00 White Blood Count 4.2 K/UL (4.8-10.8) L Red Blood Count 3.85 M/UL (4.20-5.40) L Hemoglobin 11.0 G/DL (12.0-16.0) L Hematocrit 34.8 % (37.0-47.0) L Mean Corpuscular Volume 91 FL (80-99) Mean Corpuscular Hemoglobin 28.5 PG (27.0-31.0) Mean Corpuscular Hemoglobin Concent 31.5 G/DL (32.0-36.0) L Red Cell Distribution Width 15.0 % (11.6-14.8) H Platelet Count 156 K/UL (150-450) Mean Platelet Volume 7.7 FL (6.5-10.1) Neutrophils (%) (Auto) 40.3 % (45.0-75.0) L Lymphocytes (%) (Auto) 45.2 % (20.0-45.0) H Monocytes (%) (Auto) 10.8 % (1.0-10.0) H Eosinophils (%) (Auto) 2.4 % (0.0-3.0) Basophils (%) (Auto) 1.2 % (0.0-2.0) Sodium Level 140 MMOL/L (136-145) Potassium Level 3.6 MMOL/L (3.5-5.1) Chloride Level 104 MMOL/L (98-107) Carbon Dioxide Level 31 MMOL/L (21-32) Anion Gap 5 mmol/L (5-15) Blood Urea Nitrogen 15 mg/dL (7-18) Creatinine 0.8 MG/DL (0.55-1.30) Estimat Glomerular Filtration Rate > 60 mL/min (>60) Glucose Level 107 MG/DL (74-106) H Calcium Level 8.9 MG/DL (8.5-10.1) Urine Color Pale yellow Urine Appearance Clear Urine pH 7 (4.5-8.0) Urine Specific [place] 1.015 (1.005-1.035) Urine Protein Negative (NEGATIVE) Urine Glucose (UA) Negative (NEGATIVE) Urine Ketones Negative (NEGATIVE) Urine Blood Negative (NEGATIVE) Urine Nitrite Negative (NEGATIVE) Urine Bilirubin Negative (NEGATIVE) Urine Urobilinogen Normal MG/DL (0.0-1.0) Urine Leukocyte Esterase Negative (NEGATIVE) Microbiology Date/Time Source Procedure Growth Status 05/20/20 01:50 Rectum Received Intake and Output 05/19/20 05/20/20 19:00 07:00 Intake Total 1180 ml 100 ml Balance 1180 ml 100 ml Intake Oral 1180 ml 100 ml # Voids 3 3 Objective PHYSICAL EXAMINATION: GENERAL: The patient is awake, responsive, in no acute distress, however, very somnolent and less responsive. HEENT: Head and neck examination, pupils are equal and reactive to light. Extraocular movements intact. Neck was supple. No JVD. LUNGS: Clear to auscultation bilaterally. No wheezing or rales. Decreased air entry in the bases. HEART: S1, S2. Regular rhythm. Distant heart sounds. No murmur or gallops. ABDOMEN: Soft, nondistended, nontender. Morbidly obese. EXTREMITIES: No cyanosis, clubbing, or edema NEUROLOGIC: Very limited secondary to the patient's status. She is very somnolent; however she is moving extremities spontaneously. NEUROLOGIC: Cranial nerves II through XII grossly normal but was not appreciated probably because of the patient's status. Assessment/Plan Assessment/Plan ASSESSMENT: 1. Uncontrolled seizure 2. noncompliance with medication. 3. Epilepsy. 4. Poor compliance with medication. 5. Psychiatric disorder. 6. Morbid obesity. PLAN: 1. Admit the patient to monitored unit. 2. Dr. Rincon=Pulmonary Critical Care. 3. Continue Keppra and Lamictal. Ativan as needed for breakthrough seizure. 4. PT and OT for mobility. 5. Discharge planning: discharge back to the assisted living. Rico Vargas MD May 20, 2020 16:03
[2020-05-20 20:00] VITALS: BP 110/63
[2020-05-20] MEDS: Sertraline 100mg tab ORAL SCH (20:51)
[2020-05-21] VITALS: BP 112/63
[2020-05-21 04:00] VITALS: BP 107/60
[2020-05-21 06:43] LABS: BASOPHILS % (AUTO) 1.2 % (0.0-2.0); EOSINOPHILS % (AUTO) 2.1 % (0.0-3.0); HEMATOCRIT 33.7 % (37.0-47.0); HEMOGLOBIN 10.7 G/DL (12.0-16.0); LYMPHOCYTES % (AUTO) 45.7 % (20.0-45.0); MEAN CORPUSCULAR VOLUME 91 FL (80-99); MONOCYTES % (AUTO) 9.7 % (1.0-10.0); NEUTROPHILS % (AUTO) 41.3 % (45.0-75.0); PLATELET COUNT 200 K/UL (150-450); RED CELL DISTRIBUTION WIDTH 15.1 % (11.6-14.8); WHITE BLOOD COUNT 4.4 K/UL (4.8-10.8)
[2020-05-21 07:18] LABS: ANION GAP 8 mmol/L (5-15); BLOOD UREA NITROGEN 12 mg/dL (7-18); CALCIUM 9.2 MG/DL (8.5-10.1); CARBON DIOXIDE 28 MMOL/L (21-32); CHLORIDE 103 MMOL/L (98-107); CREATININE 0.8 MG/DL (0.55-1.30); POTASSIUM 3.7 MMOL/L (3.5-5.1); SODIUM 139 MMOL/L (136-145)
[2020-05-21] MEDS: OLANZapine 10mg tab ORAL SCH (09:00)
[2020-05-21] MEDS: Benztropine 1mg tab ORAL SCH (09:28)
[2020-05-21] MEDS: Heparin 5000 units/ml inj SUBQ SCH (09:30)
--- NOTE | 2020-05-21 10:48 | Diagnostic Imaging Report ---
Indication: Seizures Technique: MRI the brain performed utilizing T1 sagittal, T2 axial, T1 FLAIR axial, T2 FLAIR axial, T2*GRE and diffusion axial images without gadolinium. Comparison: None available Findings: No diffusion abnormalities are seen on diffusion weighted imaging. No evidence of intracranial hemorrhage. No evidence of mass effect including midline shift or cisternal effacement. Medial temporal lobe is normal in appearance, with normal size of the hippocampi. No increased. T2/FLAIR signal. The sella and parasellar regions are unremarkable. Expected signal flow voids are seen of the vessels of the skull base. Mastoid air cells are clear. There is near complete opacification of the left maxillary sinus.. No focal bony calvarium or soft tissue lesions are seen. Impression: 1. No evidence of acute infarct, intracranial hemorrhage, or mass effect. 2. Sinus disease as described above.
[2020-05-21] MEDS ORDERED: KEPPRA500 MG ORAL (11:52)
[2020-05-21] MEDS ORDERED: SERTRALINE HCL100 MG ORAL (11:52)
[2020-05-21] MEDS ORDERED: OLANZAPINE10 MG ORAL (11:52)
[2020-05-21] MEDS ORDERED: LAMICTAL25 MG ORAL (11:52)
[2020-05-21] MEDS ORDERED: BENZTROPINE MESY1 MG ORAL (11:52)
--- NOTE | 2020-05-21 11:54 | Pulmonology Progress Note ---
Subjective ROS Limited/Unobtainable: No Interval Events: no more seizures Allergies: Coded Allergies: No Known Allergies (Unverified , 05/17/20) Objective Last 24 Hour Vital Signs Date Time Temp Pulse Resp B/P (MAP) Pulse Ox O2 Delivery O2 Flow Rate FiO2 05/21/20 09:00 Room Air 05/21/20 08:00 75 05/21/20 08:00 75 05/21/20 04:00 98.0 63 18 107/60 (76) 98 05/21/20 04:00 64 05/21/20 00:00 66 05/21/20 00:00 97.3 85 18 112/63 (79) 97 05/20/20 21:00 Room Air 05/20/20 20:00 76 05/20/20 20:00 98.6 71 20 110/63 (79) 98 05/20/20 16:00 97.9 73 20 108/63 (78) 99 05/20/20 16:00 72 05/20/20 12:00 66 05/20/20 12:00 97.9 73 20 108/59 (75) 98 Intake and Output 05/20/20 05/21/20 19:00 07:00 Intake Total 360 ml 480 ml Balance 360 ml 480 ml Intake Oral 360 ml 480 ml # Voids 3 2 General Appearance: WD/WN HEENT: normocephalic, atraumatic Respiratory: chest wall non-tender, lungs clear Breasts: no masses Cardiovascular: normal peripheral pulses, regularly irregular Abdomen: normal bowel sounds, no organomegaly Genitourinary: normal external genitalia Extremities: no cyanosis Skin: no rash Microbiology Date/Time Source Procedure Growth Status 05/20/20 01:50 Rectum Received Laboratory Tests 05/21/20 06:10: White Blood Count 4.4L, Red Blood Count 3.70L, Hemoglobin 10.7L, Hematocrit 33.7L, Mean Corpuscular Volume 91, Mean Corpuscular Hemoglobin 28.9, Mean Corpuscular Hemoglobin Concent 31.8L, Red Cell Distribution Width 15.1H, Platelet Count 200, Mean Platelet Volume 7.5, Neutrophils (%) (Auto) 41.3L, Lymphocytes (%) (Auto) 45.7H, Monocytes (%) (Auto) 9.7, Eosinophils (%) (Auto) 2.1, Basophils (%) (Auto) 1.2, Sodium Level 139, Potassium Level 3.7, Chloride Level 103, Carbon Dioxide Level 28, Anion Gap 8, Blood Urea Nitrogen 12, Creatinine 0.8, Estimat Glomerular Filtration Rate > 60, Glucose Level 107H, Calcium Level 9.2 Current Medications Medications (Trade) Dose Ordered Sig/Elizabeth Route PRN Reason Start Time Stop Time Status Last Admin Dose Admin Acetaminophen (Tylenol) 650 mg Q4H PRN ORAL fever 05/17/20 22:00 06/16/20 21:59 Benztropine Mesylate (Cogentin) 1 mg BID ORAL 05/18/20 09:00 06/17/20 08:59 05/21/20 09:28 Dextrose (Dextrose 50%) 25 ml Q30M PRN IV Hypoglycemia 05/17/20 22:00 08/15/20 21:59 Dextrose (Dextrose 50%) 50 ml Q30M PRN IV Hypoglycemia 05/17/20 22:00 08/15/20 21:59 Heparin Sodium (Porcine) (Heparin 5000 units/ml) 5,000 units EVERY 12 HOURS SUBQ 05/18/20 09:00 07/02/20 08:59 05/21/20 09:30 Lamotrigine (LaMICtal) 25 mg DAILY ORAL 05/18/20 09:00 07/02/20 08:59 05/21/20 09:29 Levetiracetam (Keppra) 1,000 mg EVERY 12 HOURS ORAL 05/18/20 21:00 07/02/20 08:59 05/21/20 09:29 Lorazepam (Ativan 2mg/ml 1ml) 1 mg Q4H PRN IVP For Seizures 05/18/20 00:00 05/25/20 00:00 Olanzapine (ZyPREXA) 20 mg DAILY ORAL 05/18/20 09:00 07/02/20 08:59 05/21/20 09:00 Ondansetron HCl (Zofran) 4 mg Q6H PRN IVP Nausea & Vomiting 05/17/20 22:00 06/16/20 21:59 Polyethylene Glycol (Miralax) 17 gm HSPRN PRN ORAL Constipation 05/17/20 22:00 06/16/20 21:59 05/18/20 21:23 Sertraline HCl (Zoloft) 200 mg BEDTIME ORAL 05/18/20 21:00 06/17/20 20:59 05/20/20 20:51 Zolpidem Tartrate (Ambien) 5 mg HSPRN PRN ORAL Insomnia 05/17/20 22:00 05/24/20 21:59 Assessment/Plan Problems: (1) Epileptic seizure, generalized (2) Poor compliance (3) Psychiatric diagnosis Assessment/Plan doing better no more seizures seizure precaution increase the dose of Depakote neuro evaluation symptomatic treatment prescription written, will get the meds from the [place] pharmacy before discharge. d/w charge nurse. Esther Rincon MD May 21, 2020 11:54
[2020-05-21 12:00] VITALS: BP 104/62
[2020-05-21] MEDS ORDERED: D5 1/2NS 1000ml IV ONE (14:59)
--- NOTE | 2020-05-24 20:16 | Discharge Summary ---
Discharge Summary Discharge Summary _ DATE OF ADMISSION: 05/17/2020 DATE OF DISCHARGE: 05/21/2020 ADMITTING MD: Dr. Héctor Cloud DISCHARGED BY: Dr. Esther Rincon CONSULTANTS: Dr. Esther Rincon BRIEF HOSPITAL COURSE: Patient is a 34-year-old -[place] female with past medical history significant for epilepsy as well as psychiatric disorder, who presented to the hospital from assisted living facility after she had a tonic-clonic seizure episode and weakness. The patient was recently discharged from an outside hospital to the [facility]. Patient did not have any medication for several days. She had a witnessed seizure activity and was subsequently transferred to the hospital. Upon evaluation at ED, vital signs were stable except for tachycardia at 112. Blood work did not show any leukocytosis. Hemoglobin and hematocrit were stable. BMP. Urinalysis showed 1+ leukocyte esterase, negative nitrite, 15-20 RBC, 2-4 urine WBC. Urine toxicology screen was negative. She was given Lamictal and Keppra. She was given empiric ceftriaxone treatment. She was admitted to monitored floor. She was placed on seizure precautions. She was given Keppra 1000 mg twice daily. Lamictal 25 mg daily. She was continued on Rocephin for UTI. Urine culture showed growth of diphtheroids. MRI of the brain without contrast did not show any evidence of acute infarct, intracranial hemorrhage or mass-effect. Patient underwent physical therapy. There was no further recurrence of seizure. Patient was eventually transferred to [facility]. FINAL DIAGNOSES: Uncontrolled seizure likely secondary to lack of medicine Poor compliance with medication Epilepsy Psychiatric disorder Morbid obesity DISPOSITION: Patient was discharged to [facility]. DISCHARGE MEDICATIONS: Refer to Discharge Medication List. DISCHARGE INSTRUCTIONS: Follow-up in a week. I have been assigned to complete a discharge summary on this account, I was not involved with the patient's management.--VALARIE Scales Jacqueline Robles NP May 24, 2020 20:16
== END 2020-05-21 15:00 | disposition home or self-care (01) | DRG 53 ==
LOC: EDBD 15:22 → EMR 16:13 → 2E 17:52 → EDBEDREQ 19:02
DX: G40.309 Generalized idiopathic epilepsy and epileptic syndromes, not intractable, without status epilepticus (principal); F99 Mental disorder, not otherwise specified; E66.01 Morbid (severe) obesity due to excess calories; Z68.27 Body mass index [BMI] 27.0-27.9, adult; Z91.14 Patient's other noncompliance with medication regimen
CPT/HCPCS: 36415; 70551; 80048; 80053; 80184; 80307; 81003; 81025; 83735; 84100; 85025; 85651; 86140; 87081; 87086; 93005; 96361; 96365; 96375; 99285; J7030